=== PATIENT | male | born 1955 | race Caucasian/White ===

== ENCOUNTER 2022-02-08 17:21 | Emergency (ER) | payer MEDICARE, BC | END 2022-02-08 20:57 | disposition home or self-care (01) | LOC: JD.ED 17:21 | DX: R00.2 Palpitations (principal); E78.00 Pure hypercholesterolemia, unspecified; I10 Essential (primary) hypertension | CPT/HCPCS: 36415; 71046; 71046-26; 80053; 83735; 84443; 84484; 85025; 93225; 93226; 99285 ==